=== PATIENT | male | born 1990 | race Caucasian/White ===

== ENCOUNTER 2018-09-19 19:44 | Emergency (ER) | payer BC ==
[2018-09-19 19:53] VITALS: BP 144/64
[2018-09-19] MEDS ORDERED: ERYTHROMYCIN 0.5% OPH OINTMENT 3.5 GM (ER DISP) OS PRN (20:25)
[2018-09-19] MEDS ORDERED: MUPIROCIN CALCIUM 2% CREAM 15 GM TP ONE (20:25)
[2018-09-19] MEDS ORDERED: CEPHALEXIN 500 MG CAPSULE PO ONE (20:26)
--- NOTE | 2018-09-19 20:31 | ER Document Report ---
Addendum entered and electronically signed by ZACK WARD NP 09/22/18 19:49: Procedures - Incision and Drainage Right 3rd digit Type: Simple I&D procedure: Betadine prep applied Incision Method: Incision made with needle Amount/type of drainage: Serous fluid drained, wound debrided with sterile scissors Original Note: HPI - HPI Patient complains to provider of: Skin rash Time Seen by Provider: 09/19/18 20:02 Onset: Last week Onset/Duration: Persistent, Worse Quality of pain: Achy Pain Level: 1 Context: Patient complains of rash that started around the left eye and spread to the cheek chin and anterior neck area. Patient also noticed a large lesion to the right third finger. Patient denies any significant discomfort with the rash. Patient denies any fever. Associated Symptoms: denies: Fever, Headache Exacerbated by: Denies Relieved by: Denies Similar symptoms previously: No Recently seen / treated by doctor: No - ROS ROS below otherwise negative: Yes Systems Reviewed and Negative: Yes All other systems reviewed and negative - CONSTITUTIONAL Constitutional: DENIES: Fever, Chills - EENT EENT: REPORTS: Eye problems - Crusted lesion to eyelid - NEURO Neurology: DENIES: Headache - RESPIRATORY Respiratory: DENIES: Coughing - GASTROINTESTINAL Gastrointestinal: DENIES: Nausea, Patient vomiting - MUSCULOSKELETAL Musculoskeletal: REPORTS: Extremity pain - Right third finger - DERM Notes: Skin rash to face and neck area with fluid-filled lesion to right third finger Past Medical History - General Information source: Patient - Social History Smoking Status: Current Some Day Smoker Chew tobacco use (# tins/day): No Smoking Education Provided: Yes Frequency of alcohol use: None Drug Abuse: None Occupation: safety instruction police officer Lives with: Spouse/Significant other Family History: Reviewed & Not Pertinent Patient has suicidal ideation: No Patient has homicidal ideation: No - Medical History Medical History: Negative Renal/ Medical History: Denies: Hx Peritoneal Dialysis Past Surgical History: Reports: Hx Tonsillectomy Vertical Provider Document - CONSTITUTIONAL Agree With Documented VS: Yes Exam Limitations: No Limitations General Appearance: WD/WN, No Apparent Distress - HEENT HEENT: Atraumatic, Normocephalic Notes: Patient with erythematous crusting to left upper and lower eyelid, no drainage noted to left eye, sclera clear - NECK Neck: Normal Inspection, Supple. negative: Lymphadenopathy-Left, Lymphadenopathy-Right - RESPIRATORY Respiratory: Breath Sounds Normal, No Respiratory Distress - CARDIOVASCULAR Cardiovascular: Regular Rate, Regular Rhythm - MUSCULOSKELETAL/EXTREMETIES Musculoskeletal/Extremeties: BABAK BOLAÑOS - NEURO Level of Consciousness: Awake, Alert, Appropriate Motor/Sensory: No Motor Deficit - DERM Integumentary: Warm, Dry, Rash Notes: Patient with pustular lesions under chin and anterior neck and area where he has shaved previously. Patient with crusted dry skin lesions to left and right cheek, some areas of crusting or honey colored. Patient with bullous lesion to the right third finger measuring 2 cm x 2 cm in size Course - Re-evaluation Re-evalutation: 09/19/18 20:28 Incision, drainage and debridement of bullous lesion to finger performed. Patient tolerated well. - Vital Signs Vital signs: Temp Pulse Resp BP Pulse Ox 98.3 F 67 18 144/64 H 97 09/19/18 19:51 09/19/18 19:51 09/19/18 19:51 09/19/18 19:51 09/19/18 19:51 Discharge - Discharge Clinical Impression: Bullous impetigo, Impetigo Stye external Qualifiers: Laterality: left Eyelid: unspecified eyelid Qualified Code(s): H00.016 - Hordeolum externum left eye, unspecified eyelid Condition: Stable Disposition: HOME, SELF-CARE Instructions: Bactroban Ointment ([facility]), Cephalexin ([facility]), Impetigo ([facility]), Sty ([facility]) Additional Instructions: Return immediately for any new or worsening symptoms Followup with your primary care provider, call tomorrow to make a followup appointment Keep wound to finger covered until completely healed Apply erythromycin ophthalmic ointment to left eye 4 times a day for the next 5 days. Prescriptions: Cephalexin Monohydrate [Keflex 500 mg Capsule] 500 mg PO Q6H 7 Days capsule Mupirocin [Bactroban 2% Ointment 22 gm] 1 applic TP TID #22 gm Forms: Special Work Note Referrals: [facility] [Provider Group] - Follow up as needed
[2018-09-19] MEDS ORDERED: MUPIROCIN 2% OINTMENT 22 GM TP ONE (20:32)
== END 2018-09-19 20:45 | disposition home or self-care (01) ==
LOC: ER 19:44
DX: L01.03 Bullous impetigo (principal); H00.016 Hordeolum externum left eye, unspecified eyelid; F17.200 Nicotine dependence, unspecified, uncomplicated
CPT/HCPCS: 99282; 10060; J3490